=== PATIENT | male | born 1975 | race Caucasian/White ===

== ENCOUNTER 2017-06-25 05:42 | Emergency (ER) | payer OTHER ==
[~2017-06-25] VITALS: Ht 167.6 cm; Wt 92.3 kg
[2017-06-25 05:52] LABS: GLUCOSE,POINT OF CARE 218 MG/DL (70-110)
[2017-06-25] MEDS ORDERED: IBUPROFEN 600 MG TABLET PO ONE (06:30)
[2017-06-25 07:25] VITALS: BP 124/88
== END 2017-06-25 07:29 | disposition home or self-care (01) ==
LOC: EMS 05:43
DX: M54.5 Low back pain (principal); E11.9 Type 2 diabetes mellitus without complications
CPT/HCPCS: 72100; 82962; 99284